=== PATIENT | male | born 1985 | race Caucasian/White ===

== ENCOUNTER 2022-05-09 08:56 | Emergency (ER) | payer SELFPAY ==
[2022-05-09 08:58] VITALS: BP 129/91; PULSE 135; RESP 16; TEMP 36.8; O2SAT 94; BMI 28.5
--- NOTE | 2022-05-09 10:05 | EKG12_ITS ---
Test Reason : PALPS Blood Pressure : / mmHG Vent. Rate : 115 BPM Atrial Rate : 115 BPM P-R Int : 136 ms QRS Dur : 084 ms QT Int : 320 ms P-R-T Axes : 041 025 026 degrees QTc Int : 442 ms Sinus tachycardia Otherwise normal ECG Confirmed by ISIAH MONTENEGRO, DOM ([id number]), managing editor LUIS MIGUEL PABON ([id number]) on 05/11/2022 1:02:14 PM Referred By: CATARINA Confirmed By:DOM JOYCE MD
--- NOTE | 2022-05-09 10:05 | RAD_ITS ---
STUDY: X-RAY CHEST REASON FOR EXAM: Male, 36 years old. Chest pain TECHNIQUE: Single AP portable view of the chest. COMPARISON: None. FINDINGS: The lungs are clear and expanded. There is no demonstrated pleural abnormality. Normal size heart. Normal mediastinum and beth. Normal visualized pulmonary arteries. Normal visualized aortic arch and descending thoracic aorta. Normal visualized thoracic spine. Normal visualized ribs, clavicles, and shoulders. There is no demonstrated abnormality of the visualized soft tissue structures of the upper abdomen. RAD/Chest 1 View (Portable) IMPRESSION: Normal x-ray examination of the chest. Electronically Signed: Shady Hernandez MD at 11:03 EDT ,
--- NOTE | 2022-05-09 10:09 | EDS_ITS ---
HPI History of Present Illness Chief Complaint: Wound Informant: patient Narrative Narrative: Patient is a 36-year-old male presenting with redness, pain and swelling of his right index finger as well as chest pain and palpitations. Patient states he is having worsening redness, pain and swelling of the right index finger along the nail and now has numbness at the tip of his finger. He states he is camping with his family and today woke up at 4 AM with chest pain. States that sharp and dull lasted for about 30 minutes. Did not radiate. He has been feeling like his heart is racing since. He denies any shortness of breath or difficulty breathing. He notes he is having body aches. He is not sure if this is related to his finger. Never anything like this before. Denies any swelling of his legs, history of DVT or PE. 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 He states he drinks about 2 energy drinks plus soda daily. Denies any upper respiratory symptoms. Denies any nausea or vomiting. No other complaints at this time. Denies any significant alcohol use. Notes he had a couple beers last night. Denies any illicit drug use or history of IV drug use. Has a history of seizure disorder. No recent seizure activity reported. [facility] Medical History no medical history Home Medications cephalexin 500 mg capsule 500 mg PO Q6 #28 caps 05/09/22 [Rx Last Taken Unknown] sulfamethoxazole 800 mg-trimethoprim 160 mg tablet (Bactrim DS) 1 tab PO BID 7 days #14 tabs 05/09/22 [Rx Last Taken Unknown] Allergy/AdvReac Type Severity Reaction Status Date / Time No Known Allergies Allergy Verified 05/09/22 08:58 Social History Smoking Status: Former smoker ROS ROS ED Constitutional Constitutional ED: Denies chills or fever(s) Eyes Eyes: Denies change in vision ENT ENT ED: Denies rhinorrhea or sore throat Cardiovascular Cardiovascular: Reports chest pain, palpitations and racing heartbeat Respiratory/Chest Respiratory/Chest: Denies cough or dyspnea Gastrointestinal Gastrointestinal: Denies abdominal pain, nausea or vomiting Genitourinary Genitourinary ED: Denies dysuria or hematuria Musculoskeletal Musculoskeletal: Reports myalgias; Denies arthralgias Integumentary Reports rash and other Details: Right index finger Neurologic Neurologic: Denies headache(s) or weakness Psychiatric Psychiatric: Denies anxiety or depression Hematologic/Lymphatic Hematologic/Lymphatic: Denies easy bleeding or easy bruising EXAM Physical Exam Const Vital Signs: 05/09/22 08:58 05/09/22 10:11 05/09/22 10:13 Temperature 98.3 F Temperature Source Temporal Pulse Rate 135 H 113 H Respiratory Rate 16 17 Respiratory Effort Normal Non-Labored Blood Pressure 129/91 H 138/89 H Blood Pressure Mean 103 105 Pulse Ox 94 96 Oxygen Delivery Method Room Air Room Air 05/09/22 10:53 05/09/22 11:30 05/09/22 12:00 Temperature 98 F 98.4 F Temperature Source Temporal Oral Pulse Rate 101 H 94 Respiratory Rate 20 H 18 Respiratory Effort Blood Pressure 123/87 H 121/85 H Blood Pressure Mean 99 97 Pulse Ox 94 96 98 Oxygen Delivery Method Room Air Room Air Room Air 05/09/22 13:16 Temperature 98.3 F Temperature Source Oral Pulse Rate 112 H Respiratory Rate 18 Respiratory Effort Blood Pressure 123/85 H Blood Pressure Mean 97 Pulse Ox 98 Oxygen Delivery Method Room Air Positive well nourished and well developed General Appearance ED: well developed and NAD HEENT Reports moist mucous membranes Eyes PERRL and EOMs intact bilaterally Neck supple and no JVD Neck Narrative: No meningeal signs Chest Wall inspection of chest normal and palpation of chest normal Resp normal respiratory effort and clear to auscultation bilaterally Cardio regular rhythm and no murmurs Rate: tachycardic GI normal to inspection, nondistended, normoactive bowel sounds and non-tender Back/Spine no CVA tenderness Extremity Extremity Narrative: Erythema swelling and tenderness of the distal aspect of the right index finger along the radial nail fold. There is a small scab over the area. No drainage appreciated. There is associated fluctuance. Normal range of motion. No fusiform swelling of the finger. No [place] signs. Neuro oriented x3 Sensorium / Orientation: alert Motor Exam: Negative for general weakness Psych mental status grossly normal Skin Skin Narrative: Paronychia to the right index finger, see MSK exam above MDM MDM MDM Narrative Medical decision making narrative: Patient is evaluated for pain and swelling of his left index finger as well as palpitations and chest discomfort. Upon arrival patient is tachycardic. EKG shows sinus tachycardia. Patient is low risk for pulmonary emboli and D-dimer is obtained which is normal. Do not think a CT is indicated. TSH is 1.22. CBC is consistent with some mild hemoconcentration with an elevated hemoglobin of 16.9. BMP unremarkable and he has a minimally elevated CRP of 11.2. High- sensitivity troponin x2 is normal at 5. Physical exam is consistent with a felon. I do not see any other physical exam findings concerning for infective endocarditis. Incision and drainage performed at the bedside. Patient tolerated this well. Will be placed on Bactrim and Keflex. Counseled on warm soaks. Physical exam is not consistent with a felon or flexor tenosynovitis. Is counseled to follow-up with a primary care doctor and given referral. The exact cause of his palpitations, tachycardia and chest pain are not clear however I think he stable to go home. Counseled to decrease his caffeine intake. Given return precautions for his finger infection. Lab Data Attestation: I reviewed the patient's lab results. Labs: Laboratory Results - last 24 hr 05/09/22 05/09/22 05/09/22 10:45 10:45 10:45 WBC 10.1 RBC 5.55 Hgb 16.9 H Hct 47.2 MCV 85.0 MCH 30.5 MCHC 35.8 RDW Std Deviation 37.6 RDW Coeff of Nelsy 12.2 Plt Count 194 MPV 10.8 Immature Gran % (Auto) 0.300 Neut % (Auto) 85.1 H Lymph % (Auto) 7.9 L [place] % (Auto) 5.7 Eos % (Auto) 0.6 Baso % (Auto) 0.4 Absolute Neuts (auto) 8.6 H Absolute Lymphs (auto) 0.80 L Nucleated RBC % 0 D-Dimer Quant (PE/DVT) 0.28 Sodium 137 Potassium 4.1 Chloride 105 Carbon Dioxide 26.0 Anion Gap 6 BUN 15 Creatinine 1.04 Estim Creat Clear Calc 106.74 Est GFR (MDRD) Af Amer 103 Est GFR (MDRD) Non-Af 85 BUN/Creatinine Ratio 14.4 Glucose 102 Calcium 8.9 Magnesium 2.0 Total Creatine Kinase 170 Troponin I High Sens 5 C-React Prot Ext Range 11.20 H TSH 1.22 05/09/22 13:05 WBC RBC Hgb Hct MCV MCH MCHC RDW Std Deviation RDW Coeff of Nelsy Plt Count MPV Immature Gran % (Auto) Neut % (Auto) Lymph % (Auto) [place] % (Auto) Eos % (Auto) Baso % (Auto) Absolute Neuts (auto) Absolute Lymphs (auto) Nucleated RBC % D-Dimer Quant (PE/DVT) Sodium Potassium Chloride Carbon Dioxide Anion Gap BUN Creatinine Estim Creat Clear Calc Est GFR (MDRD) Af Amer Est GFR (MDRD) Non-Af BUN/Creatinine Ratio Glucose Calcium Magnesium Total Creatine Kinase Troponin I High Sens 5 C-React Prot Ext Range TSH Radiography Diagnostic Testing: Clinical Impression(s) from Imaging Studies Chest X-Ray 05/09/22 10:05 IMPRESSION: Normal x-ray examination of the chest. Electronically Signed: Shady Hernandez MD at 11:03 EDT , Rhythm Strip Rhythm Strip: Sinus Tach Rate: 115 Ectopy: None EKG Initial EKG: Attestation: I personally reviewed and interpreted this EKG as follows: Interpretation: Sinus Tachycardia Comments: Sinus tachycardia rate of 115 Normal axis Normal intervals Normal ST segments Procedures Other Procedures Procedure(s): Incision and drainage Right index finger anesthetized with digital nerve block of 1% lidocaine. Some local also applied just proximal to the area of fluctuance. #11 blade used to make a small stab incision over the area of maximal fluctuance. Purulence is expressed. Area opened up with loculations. Wound is kept open and irrigated. Bacitracin and bandage applied. Patient remains neurovascularly intact after the procedure. Tolerated well with no significant complications. Discharge Plan Triage Chief Complaint: Wound ED Provider: Araceli Arguelles Dx/Rx/DC Orders Clinical Impression: Paronychia, Finger pain, right, Palpitations, Tachycardia Instructions: ED Palpitations, ED Paronychia of the Finger or Toe Prescriptions: New sulfamethoxazole-trimethoprim [Bactrim DS] 800-160 mg tablet 1 tab PO BID 7 Days Qty: 14 0RF cephalexin 500 mg capsule 500 mg PO Q6 Qty: 28 0RF Primary Care Provider: Care Physician,No Primary Referrals: Le Boggs MD [Med Staff - Applications Sales Representative] - 1-2 Weeks Care Physician,No Primary [Primary Care Provider] - Activity Restrictions/Additional Instructions: Perform warm soaks to your finger couple times of day. Keep clean and dry otherwise throughout the day. He can apply bacitracin ointment or Vaseline to it. Limit your caffeine intake. Follow-up with your primary care doctor. You been given 1 for referral. Disposition Disposition: Home, Self Care Discharge Date/Time: 05/09/22 13:57
[2022-05-09 10:11] VITALS: BP 138/89; PULSE 113; RESP 17; O2SAT 96
[2022-05-09 10:53] VITALS: O2SAT 94
[2022-05-09 10:58] LABS: Absolute Neutrophil Count 8.6 X10^3/uL (2.0-7.7); Basophil# 0.04 X10^3/uL; Basophil% 0.4 % (0-1); Eosinophil# 0.06 X10^3/uL; Eosinophils% 0.6 % (0-5); Hematocrit 47.2 % (40-54); Hemoglobin 16.9 g/dL (13.0-16.5); Lymphocyte % 7.9 % (19-41); Mean Corp Hgb Conc 35.8 g/dL (32-36); Mean Corpuscular Hgb 30.5 pg (27.0-32.0); Mean Platelet Vol. 10.8 fl (6.2-12.0); Monocyte# 0.58 X10^3/uL; Monocyte% 5.7 % (0-10); NRBC Flagged by Analyzer 0 % (0-5); Neutrophil # 8.59 X10^3/uL (2.7-7.7); Neutrophil % 85.1 % (47-70); Platelet Count 194 K/mm3 (150-450); RBC Distribution Width CV 12.2 % (11.6-14.6); RBC Distribution Width SD 37.6 fl (35.1-43.9); Red Blood Count 5.55 M/mm3 (4.6-6.2); White Blood Count 10.1 K/mm3 (4.4-11.0)
[2022-05-09 11:10] LABS: D-Dimer Quantitative (DVT/PE) 0.28 FEU/ug/m (0.27-0.49)
[2022-05-09 11:24] LABS: Anion Gap 6 (5-15); BUN 15 mg/dL (7-18); BUN/Creat Ratio 14.4 RATIO (10-20); CPK Total, Creatine Kinase 170 U/L (39-308); Calcium,Total 8.9 mg/dL (8.5-10.1); Chloride 105 mmol/L (98-107); Creatinine, Serum 1.04 mg/dL (0.70-1.30); EST Glomerular Filtration Rate 85 mL/min (>60); Est Glom Filt Rate - Afr Amer 103 mL/min (>60); Estimated Creatinine Clearance 106.74 ml/min; Glucose 102 mg/dL (74-106); Potassium 4.1 mmol/L (3.5-5.1); Sodium Level 137 mmol/L (136-145); Thyroid Stim Hormone (TSH) 1.22 uIU/mL (0.358-3.74); Troponin-I HS (w/2H Reflex) 5 pg/mL (3.0-78.0)
[2022-05-09] MEDS: Aspirin 81 MG TAB.CHEW 324 MG PO (11:27)
[2022-05-09] MEDS: 0.9% Normal Saline 1,000 ML 1000 ML IV (11:27)
[2022-05-09 11:30] VITALS: BP 123/87; PULSE 101; RESP 20; TEMP 36.6; O2SAT 96
[2022-05-09 12:00] VITALS: BP 121/85; PULSE 94; RESP 18; TEMP 36.9; O2SAT 98
[2022-05-09 12:54] LABS: Reflex Troponin-HS? (from REC) Y
[2022-05-09] MEDS: Cephalexin 250 MG Capsule 500 MG PO (13:15)
[2022-05-09] MEDS: Smz/Tmp Ds Tablet 1 TABLET PO (13:15)
[2022-05-09 13:16] VITALS: BP 123/85; PULSE 112; RESP 18; TEMP 36.8; O2SAT 98
[2022-05-09 13:28] LABS: Troponin-I HS 5 pg/mL (3.0-78.0)
[2022-05-09] MEDS: Lidocaine 1% (20 ml mdv) 20 ML Vial INFILT (13:52)
== END 2022-05-09 13:57 | disposition home or self-care (01) ==
PROVIDERS: Emergency Provider Emergency Medicine; Visit Provider Emergency Medicine
DX: L03.011 Cellulitis of right finger (principal); R00.2 Palpitations; R00.0 Tachycardia, unspecified; Z87.891 Personal history of nicotine dependence
CPT/HCPCS: 71045; 80048; 82550; 83735; 84443; 84484; 85025; 85379; 86140; 87428; 93005; 96360; 99285; J7030